=== PATIENT | female | born 1955 | race Caucasian/White ===

== ENCOUNTER 2016-06-07 20:58 | Emergency (ER) | payer OTHER ==
--- NOTE | 2016-06-07 21:20 | PDOC ---
History of Present Illness - General History Source: Patient Exam Limitations: No Limitations - History of Present Illness Initial Comments: 06/07/16 21:20 The patient is a 61 year old female, with significant past medical history multiple sclerosis, who presents today with a head injury. The patient states that she twisted her left ankle in her bathroom and hit the back of her head on the toilet bowl. The patient states that she has a bump on her head with active bleeding. She states that her neck is stiff, but is not complaining of any other pain at this time. Denies LOC, lightheadedness, changes in vision, vomiting. Denies any other trauma. Denies chest pain, SOB. Allergies:Codeine, iodinated contrast media, meperidine, penicillin, propoxyphene HCL, Sulfa, IV contrast. PCP- Dr. Gonzalez <Keila Berman - Last Filed: 06/07/16 21:20> <Deepika Boogie - Last Filed: 06/10/16 04:23> - General Chief Complaint: Injury Stated Complaint: HEAD INJURY Time Seen by Provider: 06/07/16 21:03 Past History <Keila Berman - Last Filed: 06/07/16 21:20> - Past Medical History GI Disorders: Yes (NEUROGENIC BLADDER) Other medical history: MS - Psycho/Social/Smoking Cessation Hx Anxiety: No Suicidal Ideation: No Smoking Status: No Smoking History: Never smoked Have you smoked in the past 12 months: No Number of Cigarettes Smoked Daily: 0 Information on smoking cessation initiated: No Hx Alcohol Use: No Drug/Substance Use Hx: No <Deepika Boogie - Last Filed: 06/10/16 04:23> - Past Medical History Allergies/Adverse Reactions: Allergies Allergy/AdvReac Type Severity Reaction Status Date / Time codeine [Codeine] Allergy Unknown Verified 06/07/16 21:00 Iodinated Contrast Media - Allergy Unknown Verified 06/07/16 21:00 Oral and meperidine Allergy Unknown Verified 06/07/16 21:00 Penicillins Allergy Unknown Verified 06/07/16 21:00 propoxyphene HCl Allergy Unknown Verified 06/07/16 21:00 [From Darvon] Sulfa (Sulfonamide Allergy Unknown Verified 06/07/16 21:00 Antibiotics) IV CONTRAST Allergy Unknown Uncoded 06/07/16 21:00 Home Medications: Ambulatory Orders Alendronate Na [Fosamax (Weekly)] 35 mg PO Q7D 09/28/12 Baclofen 10 mg PO HS 09/28/12 Oxybutynin [Oxytrol] 1 patch.72h TP ASDIR 09/28/12 Solifenacin Succinate [VESIcare] 10 mg PO HS 09/28/12 Baclofen 5 mg PO HS 06/07/16 Dalfampridine [Ampyra] 10 mg PO BID 06/07/16 Teriflunomide [Aubagio] 14 mg PO DAILY 06/07/16 Trauma Specific PMHX - Complaint Specific PMHX Arthritis: No Back Injury: No Neck Injury: No Hx Sacro Iliac Joint Dysfunction: No <Deepika Boogie - Last Filed: 06/10/16 04:23> Review of Systems - Review of Systems Able to Perform ROS?: Yes Comments:: 06/07/16 21:20 CONSTITUTIONAL: Absent: fever, no chills, no fatigue HEAD: Present: injury on the back of her head with associated pain, swelling, and bleeding. EYES: Absent: visual changes ENT: Absent: ear pain, no sore throat CARDIOVASCULAR: Absent: chest pain, no palpitations RESPIRATORY: Absent: cough, no SOB GI: Absent: abdominal pain, no nausea, no vomiting, no constipation, no diarrhea GENITOURINARY: Absent: dysuria, no frequency, no hematuria MUSCULOSKELETAL: Absent: back pain, no arthralgia, no myalgia SKIN: Absent: rash NEURO: Absent: headache <Keila Berman - Last Filed: 06/07/16 21:20> *Physical Exam - Vital Signs Last Vital Signs Temp Pulse Resp BP Pulse Ox 97.6 F 73 18 134/83 100 06/07/16 20:58 06/07/16 20:58 06/07/16 20:58 06/07/16 20:58 06/07/16 20:58 - Physical Exam Comments: 06/07/16 21:21 GENERAL: The patient is awake, alert, and fully oriented, in no acute distress. HEAD: 3 x 4cm tender contusion of the right occipital area covered with dried blood. EYES: Pupils 2 mm and equal, round and sluggishly reactive to light, extraocular movements intact, sclera anicteric, conjunctiva clear with no pallor. ENT: Ears normal, nares patent, oropharynx clear without exudates. Moist mucous membranes. NECK: Normal range of motion, supple without lymphadenopathy, JVD, or masses. LUNGS: Breath sounds equal, clear to auscultation bilaterally. No wheeze/ crackles. HEART: Regular rate and rhythm, normal S1 and S2 without murmur or rub. ABDOMEN: Soft/nontender/nondistended. BS wnl. No guarding or rebound. No palpable masses. No hepatosplenomegaly. EXTREMITIES: Normal range of motion, no edema. No clubbing or cyanosis. No cords, erythema, or tenderness. NEUROLOGICAL: No pronator drift, bilateral lower extremity moderate weakness ( baseline according to the patient), increased lateral nystagmus to the right eye (baseline according to the patient). Cranial nerves II through XII grossly intact. Normal speech, normal gait. PSYCH: Normal mood, normal affect. SKIN: Warm, Dry, normal turgor, no rashes or lesions noted. <Keila Berman - Last Filed: 06/07/16 21:20> - Vital Signs Last Vital Signs Temp Pulse Resp BP Pulse Ox 97.6 F 73 18 134/83 100 06/07/16 20:58 06/07/16 20:58 06/07/16 20:58 06/07/16 20:58 06/07/16 20:58 <Deepika Boogie - Last Filed: 06/10/16 04:23> Progress Note - Progress Note Progress Note: Documentation has been prepared under my direction and personally reviewed by me in its entirety. I attest that this documented accurately reflects all work, treatment, procedures and medical decision making performed by me. <Deepika Boogie - Last Filed: 06/10/16 04:23> Medical Decision Making - Medical Decision Making as noted above, this 61-year-old woman with a long history of MS, presents with a fall in her bathroom during which she struck her head against the toilet bowl.no LOC.The area of impact, right occipital region, bled persistently. No new focal neuro deficits reported No other symptoms. Examination as noted above;when area of dried blood was cleansed, underlying area was abrasion (not laceration).abrasion cleansed with sterile normal saline and bacitracin applied to the area Because the patient had baseline neurological abnormalities on exam, including lower extrem weakness and nystagmus (bothof which patient states have been present previously), noncontrast performed. Noncontrast head CT shows no fracture/bleed/contusion <Deepika Boogie - Last Filed: 06/10/16 04:23> *DC/Admit/Observation/Transfer - Attestations Scribe Attestion: 06/07/16 21:21 Documentation prepared by VANDANA Mondragon, acting as bilingual medical assistant for Deepika Boogie MD. <Keila Berman - Last Filed: 06/07/16 21:20> <Deepika Boogie - Last Filed: 06/10/16 04:23> Diagnosis at time of Disposition: Contusion of scalp Qualifiers: Encounter type: initial encounter Qualified Code(s): S00.03XA - Contusion of scalp, initial encounter Closed head injury Qualifiers: Encounter type: initial encounter Qualified Code(s): S09.90XA - Unspecified injury of head, initial encounter - Discharge Dispostion Disposition: HOME Condition at time of disposition: Stable - Referrals Referrals: Jm Gonzalez [Primary Care Provider] - - Patient Instructions Printed Discharge Instructions: DI for Closed Head Injury Additional Instructions: elevate head tonight tylenol as needed for pain Bacitracin to contusion/abrasion twice daily return to ER if you have severe headache, nausea or lightheadedness followup with your doctor within 1 week
[2016-06-07 21:51] VITALS: BP 134/83; PULSE 73; TEMP 97.6; BMI 22.3
== END 2016-06-07 22:56 | disposition home or self-care (01) ==
LOC: FER 20:58
DX: S00.03XA Contusion of scalp, initial encounter (principal); S09.90XA Unspecified injury of head, initial encounter; W22.03XA Walked into furniture, initial encounter; Y93.89 Activity, other specified; Y92.002 Bathroom of unspecified non-institutional (private) residence as the place of occurrence of the external cause; G35 Multiple sclerosis
CPT/HCPCS: 70450-TC; 72125-TC; 99282-25